=== PATIENT | male | born 1950 | race Caucasian/White ===

== ENCOUNTER 2022-10-09 10:35 | Outpatient (CLI) | payer MEDICARE, OTHER, SELFPAY ==
--- NOTE | ~2022-10-09 | PE_ITS ---
EXAMINATION: PET_PETPSMAST_PT DATE: 10/09/2022 13:09 INDICATION: Prostate cancer TECHNIQUE: 10.021 mCi of pipflufolastat F-18 (18-F-DCFPyL) was administered i.v. Low dose computed t omography (CT) images were acquired from the base of the brain to the base of the brain to the proxim al thighs for attenuation correction and anatomic localization. Positron emission tomography (PET) im ages were acquired in the same distribution beginning 92 minutes after injection. Images including fu sed PET/CT images were reconstructed in axial, coronal, and sagittal planes. Automated exposure contr ol technique was employed. The dose-length product was 1016.53 mGy-cm. COMPARISON: None FINDINGS: Head/neck: Typical pattern of symmetric physiologic increased activity in the lacrimal, parotid and submandibula r glands as well as along the mucosa of the nasal and oral cavities, the aye-, naso- and hypopharynx, the glottis and esophagus. No pathologically enlarged cervical lymphadenopathy or suspicious foci of increased uptake in the visualized head or neck. Chest: 1.8 cm groundglass nodule in the posterior right upper lobe without evident PSMA activity. No other i n the evident lung disease or pulmonary nodules. No pleural effusion. Heart size is normal. Minimal a mount of atherosclerotic coronary artery calcification. No pericardial effusion. Thoracic aorta is no rmal in caliber. No pathologically enlarged or abnormally PSMA avid thoracic lymphadenopathy. Abdomen/pelvis/proximal thighs: Physiologic renal accumulation and excretion of activity in the kidneys, bladder and along portions o f ureters. Multiple bilateral peripelvic cysts, the largest on the left measuring 3.7 cm. Couple low- attenuation hepatic cysts the larger measuring 2.4 cm with corresponding photopenic defect on the PET imaging. Normal degree and slightly heterogenous pattern of increased uptake throughout the surround ing liver and in the spleen without radiologic correlate or dominant PSMA avid lesion. The gallbladde r, pancreas and bilateral adrenal glands are normal. Moderate uptake scattered throughout the bowels with typical duodenal and proximal jejunal predominance and without radiologic correlate, also likely physiologic. Mild scattered colonic diverticulosis without adjacent inflammation presenting to sug st diverticulitis. Normal appendix. Approximately 2.5 similar nodular region of marked PSMA activity at the left peripheral zone of the prostate with maximal SUV of 26.7. 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 Small fat-containing umbilical hernia. No other abnormal foci of increased uptake or pathologically enlarged lymphadenopathy in the abdomen, p claudio or proximal thighs. Musculoskeletal: Moderate cervical, thoracic and lumbar spondylosis. No suspicious lytic, blastic or PSMA avid bone le sions. IMPRESSION: 1. Focal prominent PSMA activity at the left peripheral zone of the prostate consistent with provided history of prostate cancer. No other normal PSMA avid lesions suspicious for metastatic disease. 2. 1.8 cm indeterminate groundglass opacity in the posterior segment of the right upper lobe without PSMA activity, most likely infectious/inflammatory in etiology. Recommend 6-12 month follow-up chest CT. Reviewed, dictated and finalized at location A. IMPRESSION: 1. Focal prominent PSMA activity at the left peripheral zone of the prostate co nsistent with provided history of prostate cancer. No other normal PSMA avid le sions suspicious for metastatic disease. 2. 1.8 cm
== END 2022-10-09 10:36 | disposition home or self-care (01) ==
PROVIDERS: PCP Family Medicine; Visit Provider Urology
DX: C61 Malignant neoplasm of prostate (principal)
CPT/HCPCS: 78815; A9595

== ENCOUNTER 2024-04-06 13:54 | Outpatient (CLI) | payer MEDICARE, OTHER, SELFPAY ==
--- NOTE | 2024-04-06 14:04 | ECG_ITS ---
Test Date: 2024-04-06 14:23:49 Measurements Intervals [place] Rate: 58 P: 74 WA: 172 QRS: 14 QRSD: 87 T: 30 QT: 401 QTc: 397 Interpretive Statements SINUS BRADYCARDIA No previous ECG available for comparison Electronically Signed On 04-07-2024 16:40:37 [employer] by Blair Alexander M.D.
[2024-04-06 14:40] LABS: Anion Gap 7 mmol/L (4-12); Blood Urea Nitrogen 32 mg/dL (9-20); Calcium 9.3 mg/dL (8.4-10.2); Carbon Dioxide 32 mmol/L (22-30); Chloride 103 mmol/L (98-107); Estimated Glomerular Filt Rate 54; Glucose 90 mg/dL (65-110); Potassium 4.6 mmol/L (3.4-5.0); Sodium 142 mmol/L (137-145)
== END 2024-04-06 13:55 | disposition home or self-care (01) ==
PROVIDERS: Anesthesiology; Visit Provider Surgery
DX: Z51.81 Encounter for therapeutic drug level monitoring (principal); I10 Essential (primary) hypertension; Z01.818 Encounter for other preprocedural examination; Z79.899 Other long term (current) drug therapy
CPT/HCPCS: 36415; 80048; 93005